=== PATIENT | female | born 1945 | race Caucasian/White ===

== ENCOUNTER → 2025-01-03 | Outpatient (RCR) | payer MEDICARE, OTHER ==
[~2025-01-03] MED LIST: ASPIRIN81 MG PO; BENICAR20 MG PO; CARVEDILOL3.125 MG PO; PLAVIX75 MG PO; SENNA PO; Z.0.NORCO 5-325 TA1 PO; Z.0.NORVASC5 MG PO; Z.1.DIOVAN HCT 1601 PO
== END ==
LOC: OT 12-29 10:47
PROVIDERS: ATTEND Physician Assistant
DX: M19.042 Primary osteoarthritis, left hand (principal); S62.61 Displaced fracture of proximal phalanx of finger

== ENCOUNTER 2025-01-14 09:00 | Outpatient (RCR) | payer MEDICARE, OTHER | END 2025-02-03 | LOC: OT 09:00 | PROVIDERS: ATTEND Physician Assistant | DX: M19.042 Primary osteoarthritis, left hand (principal); S62.615 Displaced fracture of proximal phalanx of left ring finger ==